=== PATIENT | male | born 1960 | race Asian ===

== ENCOUNTER 2017-03-21 06:12 | Observation (INO) | payer BC ==
--- NOTE | ~2017-03-21 | HP ---
History And Physical [address] [place]. [address] NAME: WES PALACIOS : 60 STATUS : ADM Varsha PAT#: [id number] AGE: 57 ADM/REG DATE : 03/21/17 MR#: [id number] REPORT SERV DATE: 03/21/17 DICTATED BY: JASSON WETZEL DATE: 03/21/17 REPORT STATUS : Draft TRANSCRIBED BY: EARL DATE: 03/21/17 DATE OF ADMISSION: 03/21/2017 PRIMARY CARE PHYSICIAN: Dr. Katlin Fitch, has an appointment on 03/23/2017. CHIEF COMPLAINT: Atypical chest pain. HISTORY OF PRESENT ILLNESS: A very pleasant 57-year-old [place] gentleman with no known history of CAD. He reports that earlier this morning around 0200 he was taking care of his mother. After getting her settled back to bed, he drank a very cold Yulisa drink and developed left-sided chest pain that did not radiate elsewhere. He describes profound diaphoresis. Denies shortness of breath, nausea, dizziness, or belching. He deferred coming to the emergency room at his family's request, went to the bathroom, had a bowel movement, and his symptoms and diaphoresis abated. The patient states his chest pain was rated an 8/10 at its most intense. At time of interview in the [facility], he is pain free. He states the episode lasted two to three minutes in duration. He reports that his bowel movement was formed and he states that for dinner he had rice, sushi pete, and Kimchi. The patient denies any personal history of myocardial infarction, stroke, DVT, or pulmonary embolus. The patient denies any recent fever or chills. No palpitations. No syncopal episodes. Denies PND or orthopnea. PAST MEDICAL HISTORY: 1. Hypertension. 2. Denies dyslipidemia or diabetes. 3. Ongoing tobacco abuse. PAST SURGICAL HISTORY: A polyp removed from his throat. SOCIAL HISTORY: He is with two children. 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 Smokes one pack per day for 30 plus years. Denies alcohol or illicits. FAMILY HISTORY: Mother with diabetes and hypertension, CAD, ME, and CABG at 78, otherwise no embolic events reported in first-degree relatives. REVIEW OF SYSTEMS: A 14-point review of systems performed, significant for HPI including home blood pressure of 120 over 70 to 80, and consumed a half cup of coffee this morning at 0300 hours in the emergency room. Otherwise, a complete review of systems obtained and negative. ALLERGIES: NO KNOWN DRUG ALLERGIES. HOME MEDICINES: Zyrtec 10 mg daily, ibuprofen p.r.n., lisinopril/hydrochlorothiazide 20/25 daily. History And Physical [address] [address] NAME: WES PALACIOS : 60 STATUS : ADM Varsha PAT#: [id number] AGE: 57 ADM/REG DATE : 03/21/17 MR#: [id number] REPORT SERV DATE: 03/21/17 DICTATED BY: JASSON WETZEL DATE: 03/21/17 REPORT STATUS : Draft TRANSCRIBED BY: EARL DATE: 03/21/17 PHYSICAL EXAMINATION: VITAL SIGNS: Bilateral blood pressures on arrival, right 140/86, left 137/88; pulse 69; respirations 16; temperature 98.0; O2 saturation 98% on room air. Height 5 feet 8 inches, weight 201 pounds. BMI 30.6. GENERAL: Cooperative, in no apparent distress. HEENT: Pupils 2 mm, sclera nonicteric. Nares patent. Moist mucous membranes. No xanthelasma. NECK: Trachea midline, no thyromegaly. No JVD. No bruits. LYMPH: No cervical lymphadenopathy. No supraclavicular lymphadenopathy. RESPIRATORY: Unlabored respirations. Breath sounds clear bilaterally to posterior auscultation. No wheezes or rhonchi. CARDIOVASCULAR: Regular rate. No murmur, rub or gallop appreciated. Extremities without edema. Pulses 2+ bilaterally. ABDOMEN: Soft, nontender, nondistended, normal bowel sounds auscultated throughout. No organomegaly. SKIN: Warm, dry extremities. No pallor, or cyanosis. PSYCHIATRIC: Appropriate affect. Alert, oriented x3. LABORATORY DATA: Troponin I less than 0.02 and 0.03. Potassium 3.9, BUN 19, creatinine 0.75, glucose 142, magnesium 2.1. WBC 11.8, hemoglobin 13.7, hematocrit 39.8, and platelet count 279,000. EKG; sinus rhythm. ASSESSMENT AND PLAN: 1. Atypical chest pain. Question of a GI component given resolution with a bowel movement. The patient has been observed in the CPOU. Two sets of cardiac markers are negative. The patient has been held n.p.o. We will proceed with MPI today. The patient will be discharged home if low risk, no ischemia. If anything suggestive of ischemia, Cardiology referral will be initiated. Otherwise, patient will be asked to follow up with PCP on Thursday as previously scheduled. 2. Question GI component follow with PCP and consider outpatient GI workup. 3. Ongoing tobacco abuse. Counseled regarding cessation for cardiovascular health and well being. 4. Hypertension. Monitor blood pressure and continue home meds. MANPREET/MODL HAYLEE Rutledge, NURSES' AIDE-BC / [id number] CC: HAYLEE Rutledge, NURSES' AIDE-BC KATLIN FITCH
[2017-03-21 04:41] LABS: BASOPHILS 0.3 %; BASOPHILS ABSOLUTE 0.04 10/3/uL (0.0-0.16); EOSINOPHILS 2.2 %; EOSINOPHILS ABSOLUTE 0.26 10/3/uL (0.0-0.53); ER CBC TAT 0 Hrs 05 Mins; HEMATOCRIT 39.8 % (40.0-51.0); HEMOGLOBIN 13.7 g/dL (13.6-17.8); IMMATURE GRANULOCYTES 0.5 %; IMMATURE GRANULOCYTES ABSOLUTE 0.06 10/3/uL (0.0-0.11); LYMPHOCYTES 21.2 %; LYMPHOCYTES ABSOLUTE 2.51 10/3/uL (0.67-4.30); MEAN CORPUS HGB CONC 34.4 g/dL (32.0-36.0); MEAN CORPUSCULAR HEMOGLOB 32.4 pg (26.0-34.0); MEAN CORPUSCULAR VOLUME 94.1 fL (80-100); MEAN PLATELET VOLUME 9.4 fL (9.2-13.0); MONOCYTES 6.6 %; MONOCYTES ABSOLUTE 0.78 10/3/uL (0.21-1.20); NEUTROPHILS 69.2 %; NEUTROPHILS ABSOLUTE 8.17 10/3/uL (2.02-8.40); PLATELET COUNT 279 10/3/uL (150-400); RBC DISTRIBUTION WIDTH 13.4 % (12.0-16.0); RED CELL COUNT 4.23 10/6/uL (4.7-6.1); WHITE BLOOD CELLS 11.8 10/3/uL (4.5-10.5)
[2017-03-21 04:42] LABS: MANUAL DIFF NO %
[2017-03-21 04:48] LABS: PARTIAL THROMBO TIME 28.9 SEC (22.5-37.2); PROTIME (NOT ORD) 13.2 SEC (12.0-14.5)
[2017-03-21 04:59] LABS: BUN (BLOOD UREA NITROGEN) 19 MG/DL (6-23); CALCIUM, SERUM 8.6 MG/DL (8.5-10.4); CHEST PAIN PROFILE TAT 0 Hrs 23 Mins; CHLORIDE, SERUM 105 MMOL/L (96-112); CO2 (CARBON DIOXIDE) 29 MMOL/L (24-34); CREATININE 0.75 MG/DL (0.70-1.30); GFR AFRICAN AMERICAN 118 ML/MIN (>=60); GFR NON AFRICAN AMERICAN 102 ML/MIN (>=60); GLUCOSE, SERUM 142 MG/DL (60-99); POTASSIUM, SERUM 3.9 MMOL/L (3.5-5.3); SODIUM, SERUM 141 MMOL/L (135-148); TROPONIN I <0.02 NG/ML (<0.05)
[2017-03-21] MEDS ORDERED: ZYRTEC ALLGY10 MG PO (08:00)
[2017-03-21] MEDS ORDERED: ADVIL PO (08:00)
[2017-03-21] MEDS ORDERED: HYDROCHLOROT12.5 MG PO (08:16)
[2017-03-21] MEDS ORDERED: ZESTORETIC1 TA1 PO (09:09)
== END 2017-03-21 13:00 | disposition home or self-care (01) ==
LOC: ER 06:12 → CDU1 06:17 → CDU2 07:11
PROVIDERS: Specialist
DX: R07.89 Other chest pain (principal); I10 Essential (primary) hypertension; Z79.899 Other long term (current) drug therapy
CPT/HCPCS: 71020; 78452; 80048; 83735; 84484; 85025; 85610; 85730; 93005; 93017; 99285; A9270-GY; A9502; G0378